=== PATIENT | male | born 1930 | race Caucasian/White ===

== ENCOUNTER 2018-12-15 13:06 | Inpatient (IN) | payer MEDICARE ==
[~2018-12-15] VITALS: Ht 177.8 cm; Wt 66.2 kg
[~2018-12-15 13:06] MED LIST: ASPI-496 PO; ATOR20TA37 PO; CARV3.122 PO; ETOMIDATE 40 MG/20 ML ONE; FURO20TA3 PO; LISI-167 PO; PHOS250T3 PO; POTA20TA6 PO; PRAV10TA2 PO; SUCCINYLCHOLINE 20 MG/ML, 10ML ONE
--- NOTE | 2018-12-15 13:06 | NUR ---
BIB [facility] AFTER BEING FOUND AT HOME UNRESPONSIVE GCS 5. TACHYPNEIC 30'S. INCONTINENT. COLD R ARM AND CYANOTIC. 60-70% RA. 98-99% NONREBREATHER. VS HAIR CUTTER T 98.9, HR 80 NSR, BP 178/120, BS 98. PT PLACED ON GURNEY. NONREBREATHER IN PLACE AT 15L SATING HIGH 90'S. GCS REMAINS 5. PT REMAINS UNRESPONSIVE. MOVES EXTREMITIES SLIGHTLY TO PAINFUL STIMULI. MONITORS APPLIED. EKG BEING PERFORMED. ERP DR. THURSTON AT BEDSIDE.
[2018-12-15] MEDS ORDERED: SODIUM CHLORIDE 0.9% 1,000 ML IV ONE (13:07)
[2018-12-15] MEDS ORDERED: PLEASE ENTER HEIGHT AND WEIGHT MC SCH (13:11)
--- NOTE | 2018-12-15 13:20 | NUR ---
ETOMIDATE 20 MG GIVEN AT 1315. 100 MG SUCCINYCHOLINE GIVEN AT 1316. INTUBATED AT 1319. 24 AT THE LIP W/ 8.0 ET TUBE. PT BRITTANI WELL.
[2018-12-15] MEDS ORDERED: SODIUM CHLORIDE 0.9% 1,000ML IVBOLUS ONE (13:30)
[2018-12-15] MEDS ORDERED: SODIUM CHLORIDE FLUSH 10ML SYR IVF ONE (13:30)
--- NOTE | 2018-12-15 13:45 | NUR ---
CENTRAL LINE INSERTED BY DR. THURSTON. PT BRITTANI WELL.
[2018-12-15 13:48] LABS: BASOPHILS # (AUTO) 0.01 x10^3/uL (0-0.1); BASOPHILS % (AUTO) 0 % (0-1); EOSINOPHILS % (AUTO) 0 % (1-7); LYMPHOCYTES # (AUTO) 0.51 x10^3/uL (1-3.4); LYMPHOCYTES % (AUTO) 5 % (22-44); MD NO; MEAN CORPUSCULAR HEMOGLOBIN 32.8 pg (27.5-34.5); MEAN CORPUSCULAR HGB CONC 32.5 g/dL (33.2-36.2); MEAN PLATELET VOLUME 9.7 fL (7.4-10.4); MONOCYTES # (AUTO) 0.58 x10^3/uL (0.2-0.8); MONOCYTES % (AUTO) 6 % (2-9); NEUTROPHILS # (AUTO) 8.48 x10^3/uL (1.8-6.8); NEUTROPHILS % (AUTO) 89 % (42-75); PLATELET COUNT 131 x10^3/uL (130-400); RED BLOOD COUNT 4.74 x10^6/uL (4.38-5.82)
[2018-12-15 13:59] LABS: INTERNATIONAL NORMALIZED RATIO 1.44 (0.93-1.1); PROTHROMBIN TIME 14.9 Seconds (9.6-11.5)
[2018-12-15 14:01] LABS: ALBUMIN 3.1 g/dL (3.4-5.0); ANION GAP 13 mmol/L (5-15); CHLORIDE 113 mmol/L (98-107)
[2018-12-15 14:04] LABS: ALANINE AMINOTRANSFERASE 319 U/L (12-78); BILIRUBIN,TOTAL 2.5 mg/dL (0.2-1.0); CREATININE 1.68 mg/dL (0.7-1.3); TOTAL PROTEIN 6.8 g/dL (6.4-8.2); TROPONIN I 0.118 ng/mL (0.000-0.045)
[2018-12-15 14:12] LABS: ALKALINE PHOSPHATASE 74 U/L (45-117); CREATINE KINASE, TOTAL 151 U/L (39-308)
[2018-12-15 14:13] LABS: SALICYLATE LEVEL < 1.7 mg/dL (2.8-20.0)
--- NOTE | 2018-12-15 14:15 | NUR ---
PT TO AND FROM CT W/ THIS RN, PRIYANKA LLAMAS, MODE BARBOUR, AND ZOLL MONITOR.
[2018-12-15] MEDS ORDERED: CEFTRIAXONE PMX 1GM/50ML 50 ML IVPB ONE (14:30)
--- NOTE | 2018-12-15 14:30 | NUR ---
DR. LIM, COGNOS ADMINISTRATOR AT BEDSIDE. FAMILY AT BEDSIDE.
[2018-12-15] MEDS ORDERED: CEFTRIAXONE PMX 1GM/50ML 50 ML ONE (14:37)
--- NOTE | 2018-12-15 14:45 | NUR ---
PT HR NOTED TO DROP TO 36 MOMENTARILY WHEN PT COUGHING. ERP DR. THURSTON NOTIFIED.
[2018-12-15] MEDS ORDERED: LABETALOL 5MG/ML, 20ML IVPush PRN (15:00)
[2018-12-15] MEDS ORDERED: LORazepam 2 MG/ML, 1ML IVPush PRN (15:00)
[2018-12-15] MEDS ORDERED: DOCUSATE 100 MG CAPSULE PO PRN (15:00)
[2018-12-15] MEDS ORDERED: ACETAMINOPHEN 325 MG TABLET PO PRN (15:00)
[2018-12-15] MEDS ORDERED: ENALAPRILAT 1.25 MG/ML, 2ML IVPush PRN (15:00)
[2018-12-15] MEDS ORDERED: POLYETHYLENE GLYCOL 17 GM PACKET PO PRN (15:00)
[2018-12-15] MEDS ORDERED: ONDANSETRON 2MG/ML, 2ML IVPush PRN (15:00)
[2018-12-15] MEDS ORDERED: MORPHINE SULFATE 4 MG/ML, 1ML IVPush PRN (15:00)
[2018-12-15] MEDS ORDERED: PRAV80TA2 PO (15:13)
[2018-12-15] MEDS ORDERED: CARV-39 PO (15:13)
--- NOTE | 2018-12-15 15:15 | NUR ---
PT REPOSITIONED FOR COMFORT. NADN. CRAIGS.
[2018-12-15 15:29] LABS: MICROSCOPIC INDICATED
[2018-12-15] MEDS ORDERED: AZITHROMYCIN 500 MG in SODIUM CHLORIDE 0.9% 250 ML IVPB ONE (15:30)
--- NOTE | 2018-12-15 16:00 | NUR ---
PT RESTING ON GURNEY. HOUSEKEEPING NOTIFIED OF NEED FOR ICU BED.
[2018-12-15 16:15] LABS: CULTURE INDICATED? YES
--- NOTE | 2018-12-15 16:33 | NUR ---
VACUUM PAN OPERATOR AT BEDSIDE.
[2018-12-15] MEDS ORDERED: ALBUTEROL/IPRATROPIUM 2.5MG/0.5MG, 3 ML ONE (16:43)
[2018-12-15] MEDS ORDERED: LACTULOSE 20 GM/30 ML UDC NG PRN (17:00)
[2018-12-15] MEDS ORDERED: DEXTROSE 50%, 50ML SYRINGE IVPush PRN (17:00)
[2018-12-15] MEDS ORDERED: DEXTROSE 4 GM TAB.CHEW PO PRN (17:00)
[2018-12-15] MEDS ORDERED: FENTANYL PF 100 MCG/2ML IVPush PRN (17:00)
[2018-12-15] MEDS ORDERED: GLUCAGON 1 MG IM PRN (17:00)
[2018-12-15] MEDS ORDERED: SENNA/DOCUSATE TABLET NG PRN (17:00)
[2018-12-15] MEDS ORDERED: ENOXAPARIN 30 MG/0.3 ML SQ SCH (17:00)
[2018-12-15] MEDS ORDERED: SENNA 176 MG/5 ML ORAL SOL NG PRN (17:00)
[2018-12-15] MEDS ORDERED: BISACODYL 10 MG SUPP PR PRN (17:00)
[2018-12-15] MEDS ORDERED: ALBUTEROL/IPRATROPIUM 2.5MG/0.5MG, 3 ML INLINE SCH (17:00)
[2018-12-15] MEDS ORDERED: LIDOCAINE-MPF 1%, 2ML ENDO PRN (17:00)
[2018-12-15] MEDS ORDERED: PHARMACY MAY ADJ FOR RENAL FX MC SCH (17:00)
--- NOTE | 2018-12-15 17:29 | NUR ---
PT MOVED FROM GURNEY TO ICU BED. Q2 TURNS IN PLACE. SHEETS CHANGED. PT REPOSITIONED FOR COMFORT.
--- NOTE | 2018-12-15 17:58 | NUR ---
PT SLEEPING IN BED. NADN. VENT IN PLACE. SOFT MUSIC PLAYING FOR COMFORT.
--- NOTE | 2018-12-15 18:32 | NUR ---
PT RESTING IN BED. NADN. REMAINS UNRESPONSIVE W/ VENTILATOR IN PLACE.
--- NOTE | 2018-12-15 19:15 | NUR ---
PT SLEEPING IN BED. NADN. VSS. VENTILATOR IN PLACE.
--- NOTE | 2018-12-15 20:17 | NUR ---
SPOKE W/ DR. ERIC REGARDING PT PNA AND NO FURTHER ORDERS FOR ABX. PER DR. ERIC START UNASYN 3.375 G IV Q8H.
--- NOTE | 2018-12-15 20:25 | NUR ---
PT SLEEPING IN BED. NADN. REMAINS ON VENTILATOR.
[2018-12-15] MEDS ORDERED: SODIUM CHLORIDE 0.9% IV SCH (20:30)
[2018-12-15] MEDS ORDERED: SULBACTAM IV SCH (20:30)
[2018-12-15] MEDS ORDERED: AMPICILLIN IV SCH (20:30)
--- NOTE | 2018-12-15 20:33 | NUR ---
ATTEMPTED TO CALL PT FAMILY AT [phone]. NO ANSWER. MESSAGE LEFT.
--- NOTE | 2018-12-15 20:50 | NUR ---
SPOKE TO DR ERIC ABOUT UNASYN DOSE. HE STATES HE IS AT HOME BUT TO PLEASE CHANGE THE DOSE TO 3.0GRAMS UNASYN. ORDER CHANGED IN COMPUTER.
--- NOTE | 2018-12-15 20:51 | NUR ---
PTS SISTER CHE CALLED( ) TO INQUIRE ABOUT THE PT. SEVERITY OF PTS CONIDTION WAS EXPLAINED. THIS RN ASKED WHAT THE PTS WISHES WOULD BE IF HE COULD ANSWER AND SHE STATED HE WOULD NOT WANT LIFE SUSTAINING MEASURES BE TAKEN. SHE STATES HE WOULD NOT WANT CPR OR TO BE INTUBATED. POC DISCUSSED. PTS SISTER STATES HE WOULD WANT TO BE COMFORT CARE ONLY BUT SHE WANTS TO SEE HIM TOMORROW AFTERNOON THIS IS THE EARLIEST SHE CAN COME TO [place]. HOWEVER PTS SISTER STATES IF HE DETERIORATES TONIGHT THEY DO NOT WANT FURTHER MEASURES TAKEN TO PROLONG HIS LIFE.
[2018-12-15] MEDS: AMPICILLIN/SULBACTAM 3 GM in SODIUM CHLORIDE 0.9% 100 ML IV SCH (21:03)
[2018-12-15] MEDS: SODIUM CHLORIDE 0.9% 1,000 ML IV SCH (21:04)
[2018-12-15] MEDS: SODIUM CHLORIDE FLUSH 10ML SYR IVF SCH (21:09)
[2018-12-15] MEDS ORDERED: FAMOTIDINE 20 MG/2 ML ONE (21:11)
[2018-12-15] MEDS: FAMOTIDINE 20 MG/2 ML IVPush SCH (21:12)
--- NOTE | 2018-12-15 21:41 | NUR ---
PT SLEEPING IN BED. NADN. REMAINS ON VENTILATOR.
--- NOTE | 2018-12-15 22:08 | NUR ---
PT REPOSITIONED FOR COMFORT. VSS.
[2018-12-15] MEDS: ALBUTEROL/IPRATROPIUM 2.5MG/0.5MG, 3 ML INLINE SCH (22:20)
--- NOTE | 2018-12-15 22:48 | NUR ---
PT SLEEPING IN BED. NADN. REMAINS ON VENTILATOR.
--- NOTE | 2018-12-15 22:49 | NUR ---
[facility]: REFERRAL #[id number]. SPOKE W/ REGAN AT [facility] WHO STATES TO CALL BACK WHEN PT REACHES TIME OF .
--- NOTE | 2018-12-15 23:13 | NUR ---
REPORT GIVEN TO LEA PRESSLEY RN.
[2018-12-15] MEDS ORDERED: LORazepam 2 MG/ML, 1ML ONE (23:37)
[2018-12-15] MEDS: LORazepam 2 MG/ML, 1ML IVPush PRN (23:38)
--- NOTE | 2018-12-15 23:41 | NUR ---
PT WITH CURRENT RASS SCORE OF +1, GOAL OF -3. PT MEDICATED PER JUL.
--- NOTE | 2018-12-16 00:39 | NUR ---
PT NOW MORE CALM. PUPILS REACTIVE HOWEVER PT HAS FIXED GAZE UPWARD. NO FURTHER CHANGES NOTED AT THIS TIME.
[2018-12-16] MEDS: SODIUM CHLORIDE 0.9% 1,000 ML IV SCH ×2 (01:35→11:31)
[2018-12-16 01:51] VITALS: BP 149/87
[2018-12-16 04:14] VITALS: BP 162/96
[2018-12-16] MEDS: ALBUTEROL/IPRATROPIUM 2.5MG/0.5MG, 3 ML INLINE SCH ×3 (04:17→10:52)
[2018-12-16] MEDS ORDERED: AMPICILLIN/SULBACTAM 3 GM in SODIUM CHLORIDE 0.9% 100 ML IV SCH (04:30)
[2018-12-16 04:37] LABS: BASOPHILS # (AUTO) 0.02 x10^3/uL (0-0.1); BASOPHILS % (AUTO) 0 % (0-1); EOSINOPHILS % (AUTO) 0 % (1-7); LYMPHOCYTES # (AUTO) 0.85 x10^3/uL (1-3.4); LYMPHOCYTES % (AUTO) 6 % (22-44); MD NO; MEAN CORPUSCULAR HEMOGLOBIN 32.2 pg (27.5-34.5); MEAN CORPUSCULAR HGB CONC 31.8 g/dL (33.2-36.2); MEAN CORPUSCULAR VOLUME 101.1 fL (81-97); MEAN PLATELET VOLUME 10.7 fL (7.4-10.4); MONOCYTES # (AUTO) 0.75 x10^3/uL (0.2-0.8); MONOCYTES % (AUTO) 6 % (2-9); NEUTROPHILS % (AUTO) 88 % (42-75); PLATELET COUNT 113 x10^3/uL (130-400); RED BLOOD COUNT 4.53 x10^6/uL (4.38-5.82); RED CELL DISTRIBUTION WIDTH 15.5 % (9.4-14.8)
[2018-12-16 04:40] LABS: CHLORIDE 117 mmol/L (98-107)
[2018-12-16 04:48] LABS: ALANINE AMINOTRANSFERASE 217 U/L (12-78); ALBUMIN 2.7 g/dL (3.4-5.0); ALKALINE PHOSPHATASE 61 U/L (45-117); ANION GAP 8 mmol/L (5-15); BILIRUBIN,TOTAL 1.8 mg/dL (0.2-1.0); CALCIUM 8.7 mg/dL (8.5-10.1); CREATININE 1.36 mg/dL (0.7-1.3); TOTAL PROTEIN 5.9 g/dL (6.4-8.2)
[2018-12-16] MEDS: AMPICILLIN/SULBACTAM 3 GM in SODIUM CHLORIDE 0.9% 100 ML IV SCH (05:24)
[2018-12-16] MEDS ORDERED: ASPIRIN 325 MG TABLET PO SCH (06:00)
[2018-12-16] MEDS: FAMOTIDINE 20 MG/2 ML IVPush SCH (09:52)
[2018-12-16] MEDS: SODIUM CHLORIDE FLUSH 10ML SYR IVF SCH (09:52)
[2018-12-16 13:00] VITALS: BP 153/85
[2018-12-16] MEDS: LORazepam 2 MG/ML, 1ML IVPush PRN (13:52)
[2018-12-16] MEDS ORDERED: LORazepam 2 MG/ML, 1ML IV PRN (14:30)
[2018-12-16] MEDS ORDERED: morphine SULFATE 10 MG/ML, 1ML IV ONE (14:30)
[2018-12-16] MEDS ORDERED: LORazepam 2 MG/ML, 1ML IV ONE (14:30)
[2018-12-16] MEDS ORDERED: ATROPINE OPHTH SOLN 1%, 2ML PO PRN (14:30)
[2018-12-17] MEDS ORDERED: SCOPOLAMINE PATCH, 1.5MG PATCH.TD72 TD SCH
[2018-12-17] MEDS ORDERED: FAMOTIDINE 20 MG/2 ML IVPush SCH (09:00)
== END 2018-12-17 12:15 | disposition expired | DRG 208 ==
LOC: ED 14:58 → EDIP 15:16 → CCU 12-16 01:17 → 3NW 12-16 16:10
PROVIDERS: ADMIT Internal Medicine; ATTEND Internal Medicine
PROC: 5A1935Z Respiratory Ventilation, Less than 24 Consecutive Hours (ICD-10-PCS; principal; 2018-12-15)
PROC: 0BH17EZ Insertion of Endotracheal Airway into Trachea, Via Natural or Artificial Opening (ICD-10-PCS; 2018-12-15)
PROC: 02HV33Z Insertion of Infusion Device into Superior Vena Cava, Percutaneous Approach (ICD-10-PCS; 2018-12-15)
PROC: 0T9B70Z Drainage of Bladder with Drainage Device, Via Natural or Artificial Opening (ICD-10-PCS; 2018-12-15)
DX: J96.01 Acute respiratory failure with hypoxia (principal); I63.511 Cerebral infarction due to unspecified occlusion or stenosis of right middle cerebral artery; N17.0 Acute kidney failure with tubular necrosis; G93.41 Metabolic encephalopathy; J69.0 Pneumonitis due to inhalation of food and vomit; I50.42 Chronic combined systolic (congestive) and diastolic (congestive) heart failure; I16.1 Hypertensive emergency; B17.9 Acute viral hepatitis, unspecified; Z99.11 Dependence on respirator [ventilator] status; E78.5 Hyperlipidemia, unspecified; D69.6 Thrombocytopenia, unspecified; I25.10 Atherosclerotic heart disease of native coronary artery without angina pectoris; I27.20 Pulmonary hypertension, unspecified; Z51.5 Encounter for palliative care; Z66 Do not resuscitate; R40.2430 Glasgow coma scale score 3-8, unspecified time; I44.1 Atrioventricular block, second degree; I34.0 Nonrheumatic mitral (valve) insufficiency; I11.0 Hypertensive heart disease with heart failure; I45.9 Conduction disorder, unspecified; B96.20 Unspecified Escherichia coli [E. coli] as the cause of diseases classified elsewhere; R23.0 Cyanosis; I99.8 Other disorder of circulatory system; I25.2 Old myocardial infarction; Z87.891 Personal history of nicotine dependence
CPT/HCPCS: 31500; 36556; 36600; 70450; 71045; 80053; 80307; 81001; 82140; 82550; 82803; 83605; 83735; 83880; 84145; 84478; 84484; 85025; 85610; 85730; 87040; 87070; 87077; 87081; 87086; 87186; 87205; 93005; 93931; 94002; 94003; 94640; 96361; 96365; 96366; 96372; 96375; G0378; J0295; J0456; J0696; J1650; J2270; J7620; J0330; J2060; J3490; J7030; J7050